=== PATIENT | female | born 1975 | race Caucasian/White ===

== ENCOUNTER 2020-12-22 06:09 | Outpatient (REF) | payer OTHER, SELFPAY ==
[2020-12-22 12:02] LABS: Alanine Aminotransferase 31 U/L (0-31); Albumin Level 4.1 g/dL (3.5-5.0); Alkaline Phosphatase 74 U/L (39-117); Anion Gap 16 (12-20); Aspartate Amino Transferase 21 U/L (5-31); Blood Urea Nitrogen 10 mg/dL (9-16); Calcium 9.1 mg/dL (8.4-10.2); Carbon Dioxide 25 mmol/L (22-29); Chloride 102 mmol/L (96-108); Cholesterol 207 mg/dL; Estimated Glomerular Filt Rate > 60; Glucose Fasting 79 mg/dL (60-99); HDL Cholesterol 58 mg/dL; LDL Cholesterol Calculated 115 mg/dl; Potassium 3.9 mmol/L (3.3-5.1); Sodium 139 mmol/L (135-145); Total Protein 6.7 g/dL (6.5-8.0); Triglycerides 174 mg/dL
== END 2020-12-22 06:10 | disposition home or self-care (01) ==
LOC: HO.HMGCLDS 06:09
PROVIDERS: PCP Internal Medicine; Visit Provider Internal Medicine
DX: E78.5 Hyperlipidemia, unspecified (principal); J45.909 Unspecified asthma, uncomplicated
CPT/HCPCS: 36415; 80053; 80061

== ENCOUNTER 2021-08-29 08:42 | Outpatient (REF) | payer OTHER, SELFPAY ==
[2021-08-29 11:53] LABS: Hematocrit 40.6 % (37.0-47.0); Hemoglobin 13.1 g/dl (12.0-16.0); Mean Corpuscular HGB Conc 32.3 g/dl (31.0-35.0); Mean Corpuscular Hemoglobin 29.3 pg (27.0-33.0); Mean Corpuscular Volume 90.8 fL (80.0-98.0); Mean Platelet Volume 9.4 fL (9.4-12.3); Platelet Count 353 X10*3/uL (160-400); Red Blood Count 4.47 X10*6/uL (4.20-5.50); Red Cell Distribution Width 12.8 % (11.0-16.0); White Blood Count 5.6 X10*3/uL (4.8-10.8)
[2021-08-29 12:21] LABS: Alanine Aminotransferase 38 U/L (0-31); Albumin Level 3.9 g/dL (3.5-5.0); Alkaline Phosphatase 82 U/L (39-117); Anion Gap 12 (12-20); Aspartate Amino Transferase 20 U/L (5-31); Bilirubin Total 0.6 mg/dL (0.0-1.0); Blood Urea Nitrogen 10 mg/dL (9-16); Calcium 9.1 mg/dL (8.4-10.2); Carbon Dioxide 25 mmol/L (22-29); Chloride 107 mmol/L (96-108); Cholesterol 221 mg/dL; Estimated Glomerular Filt Rate > 60; Glucose Fasting 96 mg/dL (60-99); HDL Cholesterol 46 mg/dL; LDL Cholesterol Calculated 148 mg/dl; Potassium 4.7 mmol/L (3.3-5.1); Sodium 139 mmol/L (135-145); Total Protein 6.6 g/dL (6.5-8.0); Triglycerides 137 mg/dL
[2021-08-29 12:26] LABS: TSH reflex Free T4 3.14 uIU/mL (0.32-4.0)
== END 2021-08-29 08:43 | disposition home or self-care (01) ==
LOC: HO.HMGCLDS 08:42
PROVIDERS: PCP Internal Medicine; Visit Provider Internal Medicine
DX: Z00.00 Encounter for general adult medical examination without abnormal findings (principal); E78.5 Hyperlipidemia, unspecified
CPT/HCPCS: 36415; 80053; 80061; 84443; 85027

== ENCOUNTER → 2022-03-30 09:28 | Outpatient (REF) | payer OTHER, SELFPAY ==
--- NOTE | 2022-03-30 09:33 | CA_ITS ---
Transthoracic Echocardiogram Patient (Last, First, Middle): Ericka Kimble Z Gender: Female Date of : 1975 Age: 47 Procedure Date: 03/30/2022 Procedure Type: Transthoracic Echocardiogram Location: OP Height: 162.56 cm Weight: 79.83 kg BSA: 1.85 m2 Heart Rate: 77 bpm BP: 142 / 80 mmHg Research Associate: SB Referring MD: Kymberly Hemphill MD Symptoms: I10 - Essential (primary) hypertension Study Quality: Adequate ECG Rhythm: Sinus Conclusions: - The left ventricular systolic function is normal. The calculated ejection fraction is 64% by biplane method. - No obvious valvular pathology seen on this study. Findings Left Ventricle Normal left ventricular cavity size. There is normal left ventricular wall thickness. The left ventricular systolic function is normal. The calculated ejection fraction is 64% by biplane method. There is no evidence of regional wall motion abnormalities. Diastolic function is normal for age. LV peak GLS -22.2%. Right Ventricle Normal right ventricular cavity size and systolic function. Atria Both atria are normal in size. Aortic Valve There is a normal trileaflet aortic valve. There is no aortic valve stenosis. There is no aortic valve regurgitation. Mitral Valve The mitral valve appears normal. There is no mitral valve regurgitation. There is no mitral valve stenosis. Pulmonic Valve The pulmonic valve is likely normal. Tricuspid Valve Normal tricuspid valve structure. There is trace tricuspid valve regurgitation. There is no evidence of pulmonary hypertension. Great Vessels The asc aorta is normal in size. Venous The inferior vena cava is normal in size and collapses greater than 50% with inspiration. Pericardium/Pleural There is no evidence of pericardial effusion. Prior Study Comparison No prior study available for comparison. Recommendations, Care & Conclusions No obvious valvular pathology seen on this study. Measurements 2D Linear Measurements IVSd: 0.78 0.6-0.9/0.6-1.0 cm LVIDd: 4.47 3.9-5.3/4.2-5.9 cm LVIDd Index: 2.42 2.4-3.2/2.2-3.1 cm/m2 LVIDs: 2.42 2.0-3.6 cm LVPWd: 0.90 0.7-1.1 cm LA Diam: 3.70 2.7-3.8/3.0-4.0 cm LAIDs Index: 2.00 1.5-2.3 cm/m2 LV Mass: 148.91 67-162/88-224 g LV Mass Index: 80.49 43-95/49-115 g/m2 LVOT Diam: 2.00 3.0+(-)1.3 cm 2D Systolic Function EF 4C: 56.10 >55% EF 2C: 71.30 >55% EF BiP: 64.10 >55% Mitral Valve MV Pk E: 0.97 MV PK A: 0.99 MV Decel Time: 217.00 E/A: 1.00 E'Lateral: 11.50 E'Medial: 9.68 E/E' Med: 10.00 E/E' Lat: 8.40 PHT: 64.00 MVA PHT: 3.44 Decel Ware: 4.46 Aortic Valve AoV Pk Andre: 1.92 AoV Mn Andre: 1.30 AoV VTI: 0.38 AoV Pk Grad: 15.00 Aov Mn Grad: 8.00 OTILIA Cont.VTI: 2.43 LVOT LVOT Pk Andre: 1.35 LVOT Mn Andre: 1.00 LVOT VTI: 0.29 LVOT Pk Grad: 7.00 LVOT Mn Grad: 4.00 LVOT Diam: 2.00 LVOT Area: 3.14 Diastolic Function MV Pk E: 0.97 MV Pk A: 0.99 E/A: 1.00 E'Medial: 9.68 E/E' Med: 10.00 E' Laterial: 11.50 E/E' Lat: 8.40 Right Ventricle TAPSE (mm): 22.10 TVS' Andre: 13.40 Tricuspid Valve RA Press: 3.00 Great Vessels Aorta Sinus of Valsalva: 2.80 2.0-3.5 cm Ao Asc: 2.90 2.1-3.4 cm Pulmonary Veins Pulm Vein S/D 1.20 Pulmonary Valve PV Pk Andre: 1.05 Peak PV Grad: 4.00 Updated in Other Vendor System with Status of Final Daron Thompson MD electronically signed on 03/31/2022 1:34:03 PM with status of Final
== END ==
LOC: HO.CARD 09:28
PROVIDERS: PCP Internal Medicine; Visit Provider Internal Medicine
DX: I10 Essential (primary) hypertension (principal); R06.09 Other forms of dyspnea
CPT/HCPCS: 93306; 93356

== ENCOUNTER 2022-04-05 08:11 | Outpatient (REF) | payer OTHER, SELFPAY ==
[2022-04-05 11:27] LABS: MANUAL DIFF FLAG NO
[2022-04-05 11:39] LABS: Basophils Percent Auto 0.6 % (0-2); Eosinophils Absolute Auto 0.1 X10*3/uL (0.0-0.4); Hematocrit 41.3 % (37.0-47.0); Hemoglobin 13.5 g/dl (12.0-16.0); Imm Gran Abs Auto 0.03 X10*3/uL (0.00-0.03); Imm Gran Pct Auto 0.6 % (0.0-0.4); Lymphocytes Absolute Auto 1.7 X10*3/uL (1.2-4.9); Lymphocytes Percent Auto 34.3 % (20-40); Mean Corpuscular HGB Conc 32.7 g/dl (31.0-35.0); Mean Corpuscular Hemoglobin 28.7 pg (27.0-33.0); Mean Corpuscular Volume 87.9 fL (80.0-98.0); Mean Platelet Volume 9.2 fL (9.4-12.3); Monocytes Absolute Auto 0.9 X10*3/uL (0.1-1.2); Monocytes Percent Auto 17.5 % (2-11); Neutrophils Absolute Auto 2.3 x10*3/uL (2.0-8.3); Platelet Count 356 X10*3/uL (160-400); Red Cell Distribution Width 12.7 % (11.0-16.0); White Blood Count 5.1 X10*3/uL (4.8-10.8)
[2022-04-05 12:05] LABS: Alanine Aminotransferase 43 U/L (0-31); Albumin Level 4.2 g/dL (3.5-5.0); Alkaline Phosphatase 79 U/L (39-117); Anion Gap 15 (12-20); Aspartate Amino Transferase 25 U/L (5-31); Bilirubin Total 1.2 mg/dL (0.0-1.0); Blood Urea Nitrogen 9 mg/dL (9-16); Calcium 9.3 mg/dL (8.4-10.2); Carbon Dioxide 26 mmol/L (22-29); Chloride 103 mmol/L (96-108); Cholesterol 249 mg/dL; Estimated Glomerular Filt Rate > 60; Glucose Fasting 91 mg/dL (60-99); HDL Cholesterol 53 mg/dL; LDL Cholesterol Calculated 161 mg/dl; Potassium 4.7 mmol/L (3.3-5.1); Sodium 139 mmol/L (135-145); Total Protein 6.9 g/dL (6.5-8.0); Triglycerides 176 mg/dL
[2022-04-05 12:09] LABS: TSH reflex Free T4 3.07 uIU/mL (0.32-4.0)
== END 2022-04-05 08:12 | disposition home or self-care (01) ==
LOC: HO.HMGCLDS 08:11
PROVIDERS: PCP Internal Medicine; Visit Provider Internal Medicine
DX: I10 Essential (primary) hypertension (principal); E78.5 Hyperlipidemia, unspecified
CPT/HCPCS: 36415; 80053; 80061; 84443; 85025

== ENCOUNTER 2022-09-28 07:21 | Outpatient (REF) | payer OTHER, SELFPAY ==
[2022-09-28 12:13] LABS: Alanine Aminotransferase 35 U/L (0-31); Albumin Level 4.1 g/dL (3.5-5.0); Alkaline Phosphatase 83 U/L (39-117); Anion Gap 12 (12-20); Aspartate Amino Transferase 23 U/L (5-31); Bilirubin Total 1.2 mg/dL (0.0-1.0); Blood Urea Nitrogen 11 mg/dL (9-16); Calcium 9.1 mg/dL (8.4-10.2); Carbon Dioxide 26 mmol/L (22-29); Chloride 106 mmol/L (96-108); Cholesterol 234 mg/dL; Estimated Glomerular Filt Rate > 60; Glucose Fasting 98 mg/dL (60-99); HDL Cholesterol 51 mg/dL; LDL Cholesterol Calculated 162 mg/dl; Potassium 4.4 mmol/L (3.3-5.1); Sodium 140 mmol/L (135-145); Total Protein 6.5 g/dL (6.5-8.0); Triglycerides 107 mg/dL
[2022-09-29 08:38] LABS: HBsAGNum1 0.33 S/CO (0.00-0.99); Hepatitis A Antibody IgM 0.15 Index (0-0.79); Hepatitis B Core Antibody Nonreactive (Nonreactive); Hepatitis B Surface Antigen Negative (Negative); ~HepC Num1 0.23 S/CO (0.00-0.79); ~Hepatitis A Antibody IgM Nonreactive (Nonreactive); ~Hepatitis B Surface Antibody NONREACTIVE (Nonreactive); ~Hepatitis C Antibody Nonreactive (Nonreactive)
== END 2022-09-28 07:22 | disposition home or self-care (01) ==
LOC: HO.HMGCLDS 07:21
PROVIDERS: PCP Internal Medicine; Visit Provider Internal Medicine
DX: E78.5 Hyperlipidemia, unspecified (principal); J45.909 Unspecified asthma, uncomplicated; R79.89 Other specified abnormal findings of blood chemistry
CPT/HCPCS: 36415; 80053; 80061; 86704; 86706; 86709; 86803; 87340

== ENCOUNTER 2023-01-30 14:27 | Outpatient (AMB) | payer OTHER, SELFPAY ==
--- NOTE | 2023-01-30 14:27 | MHC.PC.OV ---
Vital Signs 01/30/23 14:29 Height 5 ft 1 in Weight 175 lb BMI 33.1 BP 122/78 Blood Pressure Location Rt brachial Position Sitting Pulse 100 Pulse Source Pulse Oximeter Pulse Oximetry (%) 97 Oxygen Delivery Method Room Air Intake Visit Reasons: L shoulder pain Intake Note: Pt is here today for a sick visit. Pt c/o L shoulder pain that goes down her arm. Allergies codeine Allergy (Intermediate, Verified 01/30/23 14:33) itching and rash Medication List - Last Reconciled 01/30/23 by Kymberly Hemphill MD albuterol sulfate 90 mcg/actuation (ProAir HFA) 2 puffs inhalation Q6H PRN azelastine 1 spray intranasal BID budesonide-formoterol 160-4.5 mcg/actuation (Symbicort) 2 puffs inhalation BID fluticasone propionate 50 mcg/actuation 1 spray intranasal DAILY mometasone 0.1% 1 appl topical DAILY montelukast 10 mg PO DAILY olmesartan 20 mg PO DAILY triamcinolone acetonide 0.1% 1 appl topical DAILY Tobacco use date assessed: 07/21/22 Dental Screening Dental Screen Date: 01/30/23 Did you have a dental visit in the last 12 months?: Yes Did you have a dental problem in the last 6 months where you did not have access to dental care?: No Was dental information given to patient?: Patient has dentist HPI L shoulder pain HPI Details Pt c/o L shoulder pain getting progressively worse for 3 days started after lifting a heavy bucket. Patient tried ibuprofen without relief. She cannot lift her left arm because of the pain. Hypertension and chronic asthma are stable on current medications [facility] Medical History Allergic rhinitis Annual physical exam Asthma Eczema Hyperlipemia Nephrolithiasis Normal Pap smear Rectal bleed Surgical History History of lithotripsy Family History Father No problems noted. Mother HTN (hypertension) Social History Housing: House Patient Tobacco Use Status: Never used Tobacco e-Cigarette/Vaping Use: Never Used Second Hand Smoke Exposure: No service: No Current occupational status: employed Cognitive needs: No Hearing needs: No Vision needs: No Questionnaire Thrive Questionnaire Date Thrive assessed: 09/28/22 MESERET-7 AMB Questionnaire MESERET-7 Date MESERET - 7 assessed: 09/28/22 Source: Developed by Drs. Madhu Zhu, Mini Bee, Angel Zuluaga and colleagues, with an educational chela from [email or web address]. Review of Systems Const All systems reviewed & are unremarkable except as noted in HPI and below Reports no additional complaints Eyes Reports no additional complaints ENT Reports no additional complaints Card Reports no additional complaints Resp Reports no additional complaints GI Reports no additional complaints Physical exam (Primary Care) Vital Signs: Last Vital Signs Pulse 100 01/30/23 14:29 BP 122/78 01/30/23 14:29 Pulse Ox 97 01/30/23 14:29 Oxygen Delivery Method Room Air 01/30/23 14:29 BMI result Body Mass Index 33.1 Tobacco/Smoking Status: Tobacco use Status Tobacco use date assessed 07/21/22 01/30/23 14:29 Patient Tobacco Use Status Never used Tobacco 01/30/23 14:29 e-Cigarette/Vaping Use Never Used 01/30/23 14:29 Thrive Assessment: Date of Thrive Assessment Date Thrive assessed 09/28/22 01/30/23 14:29 Const General: no acute distress HENMT Throat: Yes posterior oropharynx normal Eyes General: appearance normal, both eyes and all related structures Neck Neck: Yes no lymphadenopathy and Yes supple Resp Effort & Inspection: normal respiratory effort Auscultation: clear to auscultation bilaterally Cardio Rhythm: regular rhythm Heart sounds: S1 normal heart sound present and S2 normal heart sound present Extrem Other: Anterior lateral aspect of left shoulder tenderness significantly decreased range of motion no soft tissue swelling Assessment and Plan Assessment & Plan (1) Left shoulder tendinitis: Code(s): M77.8 - Other enthesopathies, not elsewhere classified Plan: Prednisone taper is prescribed and supportive care discussed with the patient Medications: New prednisone Four tablets p.o. q.d. for 3 days then 3 tablets p.o. q.d. for 3 days then 2 tablets p.o. q.d. for 3 days and 1 tablet p.o. q.d. for 3 days 10 mg PO DAILY 30 tabs 0RF Coding Level of Care Code Est Pt Level 3 (60193) Diagnoses Left shoulder tendinitis M77.8
[2023-01-30 14:29] VITALS: BP 122/78; PULSE 100; O2SAT 97; BMI 33.1
== END 2023-01-30 14:57 | disposition home or self-care (01) ==
LOC: HO.HMGC 14:27
PROVIDERS: PCP Internal Medicine; Visit Provider Internal Medicine
DX: M77.8 Other enthesopathies, not elsewhere classified (principal)
CPT/HCPCS: 99213

== ENCOUNTER 2023-07-28 08:06 | Outpatient (REF) | payer OTHER, SELFPAY ==
[2023-07-28 11:00] LABS: MANUAL DIFF FLAG NO
[2023-07-28 11:02] LABS: Basophils Percent Auto 0.6 % (0-2); Eosinophils Absolute Auto 0.1 X10*3/uL (0.0-0.4); Eosinophils Percent Auto 2.6 % (0-4); Hematocrit 39.3 % (37.0-47.0); Hemoglobin 13.3 g/dl (12.0-16.0); Imm Gran Abs Auto 0.03 X10*3/uL (0.00-0.03); Imm Gran Pct Auto 0.6 % (0.0-0.4); Lymphocytes Absolute Auto 1.9 X10*3/uL (1.2-4.9); Lymphocytes Percent Auto 37.6 % (20-40); Mean Corpuscular HGB Conc 33.8 g/dl (31.0-35.0); Mean Corpuscular Hemoglobin 29.6 pg (27.0-33.0); Mean Corpuscular Volume 87.5 fL (80.0-98.0); Mean Platelet Volume 9.2 fL (9.4-12.3); Monocytes Absolute Auto 0.8 X10*3/uL (0.1-1.2); Monocytes Percent Auto 15.7 % (2-11); Neutrophils Absolute Auto 2.2 x10*3/uL (2.0-8.3); Neutrophils Percent Auto 42.9 % (45-73); Platelet Count 337 X10*3/uL (160-400); Red Blood Count 4.49 X10*6/uL (4.20-5.50); Red Cell Distribution Width 12.8 % (11.0-16.0)
[2023-07-28 11:25] LABS: Alanine Aminotransferase 43 U/L (0-31); Albumin Level 3.9 g/dL (3.5-5.0); Alkaline Phosphatase 73 U/L (39-117); Anion Gap 14 (12-20); Aspartate Amino Transferase 27 U/L (5-31); Bilirubin Total 0.8 mg/dL (0.0-1.0); Blood Urea Nitrogen 11 mg/dL (9-16); Calcium 9.1 mg/dL (8.4-10.2); Carbon Dioxide 24 mmol/L (22-29); Chloride 104 mmol/L (96-108); Cholesterol 219 mg/dL (<200); Estimated Glomerular Filt Rate > 60; Glucose Fasting 88 mg/dL (60-99); HDL Cholesterol 55 mg/dL (>40); LDL Cholesterol Calculated 136 mg/dL (<100); Potassium 4.1 mmol/L (3.3-5.1); Sodium 138 mmol/L (135-145); Total Protein 6.6 g/dL (6.5-8.0); Triglycerides 141 mg/dL (<150)
[2023-07-28 11:41] LABS: TSH reflex Free T4 2.19 uIU/mL (0.32-4.0)
== END 2023-07-28 08:07 | disposition home or self-care (01) ==
LOC: HO.HMGCLDS 08:06
PROVIDERS: PCP Internal Medicine; Visit Provider Internal Medicine
DX: Z00.00 Encounter for general adult medical examination without abnormal findings (principal); E78.5 Hyperlipidemia, unspecified; I10 Essential (primary) hypertension
CPT/HCPCS: 36415; 80053; 80061; 84443; 85025

== ENCOUNTER 2023-08-14 13:56 | Outpatient (AMB) | payer OTHER, SELFPAY ==
--- NOTE | 2023-08-14 14:04 | A.OFFPC_ITS ---
Vital Signs 08/14/23 14:05 Height 5 ft 1 in Weight 178 lb BMI 33.6 BP 134/80 Blood Pressure Location Lt brachial Position Sitting Pulse 73 Pulse Source Pulse Oximeter Pulse Oximetry (%) 98 Oxygen Delivery Method Room Air Intake Visit Reasons: PE Intake Note: Pt is here today for a PE. Pt states that she has been having L foot pain. Allergies codeine Allergy (Intermediate, Verified 08/14/23 14:06) itching and rash Medication List - Last Reconciled 08/14/23 by Kymberly Hemphill MD albuterol sulfate 90 mcg/actuation (ProAir HFA) 2 puffs inhalation Q6H PRN azelastine 1 spray intranasal BID budesonide-formoterol 160-4.5 mcg/actuation (Symbicort) 2 puffs inhalation BID fluconazole 100 mg PO DAILY fluticasone furoate-vilanterol 100-25 mcg/dose (Breo Ellipta) 1 inh inhalation DAILY fluticasone propionate 50 mcg/actuation 1 spray intranasal DAILY meloxicam 15 mg PO DAILY mometasone 0.1% 1 appl topical DAILY montelukast 10 mg PO DAILY olmesartan 20 mg PO DAILY triamcinolone acetonide 0.1% 1 appl topical DAILY Tobacco use date assessed: 08/14/23 Dental Screening Dental Screen Date: 08/14/23 Did you have a dental visit in the last 12 months?: Yes Did you have a dental problem in the last 6 months where you did not have access to dental care?: No Was dental information given to patient?: Patient has dentist HPI PE HPI Details Pt presents for PE. PATIENT COMPLAINS OF LEFT HEEL PAIN FOR 1 WEEK WORSE WHEN STARTING TO WALK [facility] Medical History (Updated 08/14/23 @ 14:45 by Kymberly Hemphill MD) Annual physical exam Rectal bleed Normal Pap smear Hyperlipemia Allergic rhinitis Asthma Nephrolithiasis Eczema Surgical History History of lithotripsy Family History Father No problems noted. Mother HTN (hypertension) Social History Housing: House Patient Tobacco Use Status: Never used Tobacco e-Cigarette/Vaping Use: Never Used Second Hand Smoke Exposure: No service: No Current occupational status: employed Cognitive needs: No Hearing needs: No Vision needs: No Questionnaire PHQ-9 Over the last 2 weeks, how often have you been bothered by any of the following problems? 1. Little interest or pleasure in doing things: not at all 2. Feeling down, depressed, or hopeless: not at all 3. Trouble falling or staying asleep, or sleeping too much: not at all 4. Feeling tired or having little energy: several days 5. Poor appetite or overeating: not at all 6. Feeling bad about yourself - or that you are a failure or have let yourself or your family down: not at all 7. Trouble concentrating on things, such as reading the newspaper or watching television: not at all 8. Moving or speaking so slowly that other people could have noticed. Or the opposite - being so fidgety or restless that you have been moving around a lot more than usual: not at all 9. Thoughts that you would be better off or of hurting yourself in some way: not at all Total score: 1 Depression Screening Interpretation: Negative Depression Screening Done: Yes Source: Developed by Drs. Madhu Zhu, Mini Bee, Angel Zuluaga and colleagues, with an educational chela from [email or web address]. Thrive Questionnaire Date Thrive assessed: 08/14/23 I am a: Patient What is your living situation today?: I have a steady place to live Within the past 12 months, did the food you bought not last and you didn't have the money to get more?: Never true Within the past 12 months, did you worry whether your food would run out before you got money to buy more?: Never true Do you have trouble paying for medicines?: No Do you have trouble getting transportation to medical appointments?: No Do you have trouble paying your heating and electricity bill?: No Do you have trouble taking care of your child, family member or friend?: No Do you have trouble with day-to-day activities such as bathing, preparing meals, shopping, managing finances, etc.?: No Are you currently unemployed and looking for a job?: No Are you interested in more education?: No Please select the resources that you would like help with: None Currently or been in a relationship where the following occur: no concerns reported THRIVE Score: 0 AUDIT C Alcohol Use Questionnaire (AUDIT-C) 1. How often do you have a drink containing alcohol?: Never 3. How often do you have six or more drinks on one occasion?: Never Total Score: 0 MESERET-7 AMB Questionnaire MESERET-7 Date MESERET - 7 assessed: 08/14/23 Feeling nervous, anxious, or on edge: 0 = Not at all Not being able to stop or control worryin = Not at all Worrying too much about different things: 0 = Not at all Trouble relaxin = Not at all Being so restless that it is hard to sit still: 0 = Not at all Becoming easily annoyed or irritable: 0 = Not at all Feeling afraid as if something awful might happen: 0 = Not at all Total MESERET-7 score (0-4 normal; 5-9 mild; 10-14 moderate; 15-21 severe): 0 Source: Developed by Drs. Madhu Zhu, Mini Bee, Angel Zuluaga and colleagues, with an educational chela from [email or web address]. Review of Systems Const All systems reviewed & are unremarkable except as noted in HPI and below Reports no additional complaints Eyes Reports no additional complaints ENT Reports no additional complaints Card Reports no additional complaints Resp Reports no additional complaints GI Reports no additional complaints Reports no additional complaints Musc Reports no additional complaints Physical exam (Primary Care) Vital Signs: Last Vital Signs Pulse 73 08/14/23 14:05 BP 134/80 08/14/23 14:05 Pulse Ox 98 08/14/23 14:05 Oxygen Delivery Method Room Air 08/14/23 14:05 BMI result Body Mass Index 33.6 Tobacco/Smoking Status: Tobacco use Status Tobacco use date assessed 08/14/23 08/14/23 14:12 Patient Tobacco Use Status Never used Tobacco 08/14/23 14:12 e-Cigarette/Vaping Use Never Used 08/14/23 14:12 PHQ-9: PHQ-9 Score PHQ-9: Total score 1 08/14/23 14:12 Depression Screening Interpretation: Negative Thrive Assessment: Date of Thrive Assessment Date Thrive assessed 08/14/23 08/14/23 14:12 Currently or been in a relationship where the following occur: no concerns reported Const General: no acute distress HENMT Head: Yes normal to inspection Ears: hearing grossly normal bilaterally Face and sinus: Yes normal facial exam Neck Neck: Yes no lymphadenopathy and Yes supple Resp Effort & Inspection: normal respiratory effort Auscultation: clear to auscultation bilaterally Cardio Rhythm: regular rhythm Heart sounds: S1 normal heart sound present and S2 normal heart sound present GI Inspection: Yes normal to inspection Palpation (GI): Soft to palpation Percussion: Yes normal to percussion Auscultation: normal bowel sounds Extrem Other: Tenderness over left heel plantar no soft tissue swelling General: Yes no clubbing, cyanosis or edema Assessment and Plan Assessment & Plan (1) Hx of colonoscopy: Comment: 04/08 1 polyp, Dr. Franklin, recheck in 5 years Code(s): Z98.890 - Other specified postprocedural states (2) Annual physical exam: Code(s): Z00.00 - Encounter for general adult medical examination without abnormal findings Plan: Well-balanced diet regular exercise weight loss discussed with the patient. She is up-to-date with Pap smear by repair specialist mammogram and colonoscopy (3) HTN (hypertension): Code(s): I10 - Essential (primary) hypertension Plan: Continue olmesartan (4) Asthma: Code(s): J45.909 - Unspecified asthma, uncomplicated (5) Plantar fasciitis of left foot: Code(s): M72.2 - Plantar fascial fibromatosis Plan: Meloxicam and stretching Orders: Orders Comprehensive [place]. Panel Fast 6 Months E78.5 - Hyperlipidemia, unspecified, I10 - Essential (primary) hypertension Complete Blood Count Auto Diff 6 Months E78.5 - Hyperlipidemia, unspecified, I10 - Essential (primary) hypertension Lipid Panel 6 Months E78.5 - Hyperlipidemia, unspecified, I10 - Essential (primary) hypertension TSH reflex Free T4 6 Months E78.5 - Hyperlipidemia, unspecified, I10 - Essential (primary) hypertension Medications: New meloxicam 15 mg PO DAILY 10 tabs 0RF fluconazole 100 mg PO DAILY 7 tabs 0RF Discontinued budesonide-formoterol 160-4.5 mcg/actuation (Symbicort) Discontinued Reason: Doctor's Order 2 puffs inhalation BID 30.6 grams 3RF J45.909 - Unspecified asthma, uncomplicated Coding Level of Care Code Est Pt Prev Care 40-64y(13863) Diagnoses Hx of colonoscopy Z98.890 Annual physical exam Z00.00 HTN (hypertension) I10 Asthma J45.909 Plantar fasciitis of left foot M72.2
[2023-08-14 14:05] VITALS: BP 134/80; PULSE 73; O2SAT 98; BMI 33.6
== END 2023-08-14 14:35 | disposition home or self-care (01) ==
PROVIDERS: PCP Internal Medicine; Visit Provider Internal Medicine
DX: Z98.890 Other specified postprocedural states (principal); Z00.00 Encounter for general adult medical examination without abnormal findings; I10 Essential (primary) hypertension; J45.909 Unspecified asthma, uncomplicated; M72.2 Plantar fascial fibromatosis
CPT/HCPCS: 99396

== ENCOUNTER 2024-01-25 14:02 | Outpatient (AMB) | payer OTHER, SELFPAY ==
[2024-01-25 14:04] VITALS: BP 120/82; PULSE 74; O2SAT 96; BMI 32.7
--- NOTE | 2024-01-25 14:04 | A.OFFPC_ITS ---
Vital Signs 01/25/24 14:04 Height 5 ft 1 in Weight 173 lb BMI 32.7 BP 120/82 Blood Pressure Location Lt brachial Position Sitting Pulse 74 Pulse Source Pulse Oximeter Pulse Oximetry (%) 96 Oxygen Delivery Method Room Air Intake Visit Reasons: 6M F/U Intake Note: Pt is here today for 6 months follow up visit. Allergies codeine Allergy (Intermediate, Verified 01/25/24 14:10) itching and rash Medication List - Last Reconciled 01/25/24 by Kymberly Hemphill MD albuterol sulfate 90 mcg/actuation (ProAir HFA) 2 puffs inhalation Q6H PRN azelastine 1 spray intranasal BID fluconazole 100 mg PO DAILY fluticasone furoate-vilanterol 100-25 mcg/dose (Breo Ellipta) 1 inh inhalation DAILY fluticasone propionate 50 mcg/actuation 1 spray intranasal DAILY meloxicam 15 mg PO DAILY mometasone 0.1% 1 appl topical DAILY montelukast 10 mg PO DAILY olmesartan 20 mg PO DAILY triamcinolone acetonide 0.1% 1 appl topical DAILY Tobacco use date assessed: 01/25/24 Dental Screening Dental Screen Date: 01/25/24 Did you have a dental visit in the last 12 months?: Yes Did you have a dental problem in the last 6 months where you did not have access to dental care?: No Was dental information given to patient?: Patient has dentist HPI 6M F/U HPI Details Pt presents for the follow-up of hypertension chronic asthma stable on current medications. Patient complains of persistent bilateral lower extremities sensation of heaviness and discomfort worse at the end of the day. She complains of persistent left heel pain worse when starting to walk. She took meloxicam for 10 days with some relief. Patient has been doing plantar fasciitis stretching exercises and wearing some foot inserts regularly. [facility] Medical History Annual physical exam Rectal bleed Normal Pap smear Hyperlipemia Allergic rhinitis Asthma Nephrolithiasis Eczema Surgical History History of lithotripsy Family History Father No problems noted. Mother HTN (hypertension) Social History Housing: House Patient Tobacco Use Status: Never used Tobacco e-Cigarette/Vaping Use: Never Used Second Hand Smoke Exposure: No service: No Current occupational status: employed Cognitive needs: No Hearing needs: No Vision needs: No Questionnaire PHQ-9 Over the last 2 weeks, how often have you been bothered by any of the following problems? 1. Little interest or pleasure in doing things: not at all 2. Feeling down, depressed, or hopeless: not at all 3. Trouble falling or staying asleep, or sleeping too much: not at all 4. Feeling tired or having little energy: several days 5. Poor appetite or overeating: not at all 6. Feeling bad about yourself - or that you are a failure or have let yourself or your family down: not at all 7. Trouble concentrating on things, such as reading the newspaper or watching television: not at all 8. Moving or speaking so slowly that other people could have noticed. Or the opposite - being so fidgety or restless that you have been moving around a lot more than usual: not at all 9. Thoughts that you would be better off or of hurting yourself in some way: not at all Total score: 1 Depression Screening Interpretation: Negative Depression Screening Done: Yes 85633 - PHQ-9 Billing: Yes Source: Developed by Drs. Madhu Zhu, Mini Bee, Angel Zuluaga and colleagues, with an educational chela from [employer]. Thrive Questionnaire Date Thrive assessed: 01/25/24 I am a: Patient What is your living situation today?: I have a steady place to live Within the past 12 months, did the food you bought not last and you didn't have the money to get more?: Often true Within the past 12 months, did you worry whether your food would run out before you got money to buy more?: I choose not to answer this question Do you have trouble paying for medicines?: I choose not to answer this question Do you have trouble getting transportation to medical appointments?: No Do you have trouble paying your heating and electricity bill?: I choose not to answer this question Do you have trouble taking care of your child, family member or friend?: No Do you have trouble with day-to-day activities such as bathing, preparing meals, shopping, managing finances, etc.?: No Are you currently unemployed and looking for a job?: No Are you interested in more education?: I choose not to answer this question Please select the resources that you would like help with: Housing/Penitentiary THRIVE Score: 1 AUDIT C Alcohol Use Questionnaire (AUDIT-C) 1. How often do you have a drink containing alcohol?: Never 3. How often do you have six or more drinks on one occasion?: Never Total Score: 0 MESERET-7 AMB Questionnaire MESERET-7 Date MESERET - 7 assessed: 01/25/24 Feeling nervous, anxious, or on edge: 0 = Not at all Not being able to stop or control worryin = Not at all Worrying too much about different things: 0 = Not at all Trouble relaxin = Not at all Being so restless that it is hard to sit still: 0 = Not at all Becoming easily annoyed or irritable: 0 = Not at all Feeling afraid as if something awful might happen: 0 = Not at all Total MESERET-7 score (0-4 normal; 5-9 mild; 10-14 moderate; 15-21 severe): 0 Source: Developed by Drs. Madhu Zhu, Mini Bee, Angel Zuluaga and colleagues, with an educational chela from [employer]. Review of Systems Const All systems reviewed & are unremarkable except as noted in HPI and below Eyes Reports no additional complaints Card Reports no additional complaints Resp Reports no additional complaints GI Reports no additional complaints Reports no additional complaints Physical exam (Primary Care) Vital Signs: Last Vital Signs Pulse 74 01/25/24 14:04 BP 120/82 01/25/24 14:04 Pulse Ox 96 01/25/24 14:04 Oxygen Delivery Method Room Air 01/25/24 14:04 BMI result Body Mass Index 32.7 Tobacco/Smoking Status: Tobacco use Status Tobacco use date assessed 01/25/24 01/25/24 14:12 Patient Tobacco Use Status Never used Tobacco 01/25/24 14:12 e-Cigarette/Vaping Use Never Used 01/25/24 14:05 PHQ-9: PHQ-9 Score PHQ-9: Total score 1 01/25/24 14:12 Depression Screening Interpretation: Negative Thrive Assessment: Date of Thrive Assessment Date Thrive assessed 01/25/24 01/25/24 14:05 Const General: no acute distress HENMT Head: Yes normal to inspection Resp Effort & Inspection: normal respiratory effort Auscultation: clear to auscultation bilaterally Cardio Rhythm: regular rhythm Heart sounds: S1 normal heart sound present and S2 normal heart sound present GI Inspection: Yes normal to inspection Palpation (GI): Soft to palpation Percussion: Yes normal to percussion Extrem Other: 1+ pitting edema in lower extremities, reproducible tenderness in the left heel, Assessment and Plan Assessment & Plan (1) Plantar fasciitis of left foot: Code(s): M72.2 - Plantar fascial fibromatosis Plan: Continue supportive care with stretching exercises. Patient has an appointment with heavy duty truck mechanic in 2 months (2) HTN (hypertension): Code(s): I10 - Essential (primary) hypertension Plan: Continue current medications (3) Asthma: Code(s): J45.909 - Unspecified asthma, uncomplicated Plan: Continue Breo (4) Venous insufficiency of both lower extremities: Code(s): I87.2 - Venous insufficiency (chronic) (peripheral) Plan: Patient was advised to wear support knee-highs and elevate lower extremities Medications: Refilled meloxicam 15 mg PO DAILY 10 tabs 0RF meloxicam 15 mg PO DAILY 30 tabs 0RF Coding Level of Care Code Est Pt Level 4 (55868) Diagnoses Plantar fasciitis of left foot M72.2 HTN (hypertension) I10 Asthma J45.909 Venous insufficiency of both lower extremities I87.2
== END 2024-01-25 15:24 | disposition home or self-care (01) ==
PROVIDERS: PCP Internal Medicine; Visit Provider Internal Medicine
DX: M72.2 Plantar fascial fibromatosis (principal); I10 Essential (primary) hypertension; J45.909 Unspecified asthma, uncomplicated; I87.2 Venous insufficiency (chronic) (peripheral)
CPT/HCPCS: 99214

== ENCOUNTER 2024-09-01 12:55 | Outpatient (REF) | payer OTHER, SELFPAY ==
--- NOTE | ~2024-09-01 | XR_ITS ---
EXAMINATION: XR SHOULDER 2 OR MORE VIEWS RIGHT HISTORY: M25.519 - Pain in unspecified shoulder COMPARISON: There are no prior studies available for comparison. FINDINGS: Four views of the right shoulder are submitted. Osseous mineralization is normal. There is no fracture or dislocation. The glenohumeral joint is maintained. There is mild narrowing of the AC joint. Tiny calcifications adjacent to the greater tuberosity of the humerus is likely related to the rotator cuff. XR/XR shoulder RT min 2V IMPRESSION: Mild narrowing of the AC joint. Probable rotator cuff calcifications. Electronically signed by: Madhu Thapa MD 09/02/2024 07:57 AM EDT
== END 2024-09-01 12:56 | disposition home or self-care (01) ==
LOC: HO.HMGCX 12:55
PROVIDERS: PCP Internal Medicine; Visit Provider Internal Medicine
DX: Z00.00 Encounter for general adult medical examination without abnormal findings (principal); J45.909 Unspecified asthma, uncomplicated; M25.511 Pain in right shoulder; I10 Essential (primary) hypertension; E78.5 Hyperlipidemia, unspecified; Z98.890 Other specified postprocedural states
CPT/HCPCS: 73030; 96127

== ENCOUNTER 2024-09-01 12:55 | Outpatient (AMB) | payer OTHER, SELFPAY ==
[2024-09-01 13:10] VITALS: BP 124/78; PULSE 71; RESP 18; TEMP 36.6; O2SAT 97; BMI 33.6
--- NOTE | 2024-09-01 13:10 | MHC.PC.OV ---
Vital Signs 09/01/24 13:10 Height 5 ft 1 in Weight 178 lb BMI 33.6 BP 124/78 Blood Pressure Location Rt brachial Position Sitting Respiration 18 Pulse 71 Pulse Source Pulse Oximeter Temp 97.8 F Temp Source Oral Pulse Oximetry (%) 97 Oxygen Delivery Method Room Air Intake Visit Reasons: Annual PE Intake Note: Pt is here today for PE. Allergies codeine Allergy (Intermediate, Verified 09/01/24 13:15) itching and rash Medication List - Last Reconciled 09/01/24 by Kymberly Hemphill MD albuterol sulfate 90 mcg/actuation (ProAir HFA) 2 puffs inhalation Q6H PRN azelastine 1 spray intranasal BID fluconazole 100 mg PO DAILY fluticasone furoate-vilanterol 100-25 mcg/dose (Breo Ellipta) 1 inh inhalation DAILY fluticasone propionate 50 mcg/actuation 1 spray intranasal DAILY mometasone 0.1% 1 appl topical DAILY montelukast 10 mg PO DAILY olmesartan 20 mg PO DAILY triamcinolone acetonide 0.1% 1 appl topical DAILY Tobacco use date assessed: 09/01/24 Dental Screening Dental Screen Date: 09/01/24 Did you have a dental visit in the last 12 months?: Yes Did you have a dental problem in the last 6 months where you did not have access to dental care?: No Was dental information given to patient?: Patient has dentist HPI Annual PE HPI Details Patient presents for the physical. She complains of persistent right shoulder pain on and off for 6 months worse when trying to reach overhead. Patient denies injury or pain at rest. [facility] Medical History (Updated 09/01/24 @ 14:12 by Kymberly Hemphill MD) Annual physical exam Rectal bleed Normal Pap smear Hyperlipemia Allergic rhinitis Asthma Nephrolithiasis Eczema Surgical History (Updated 09/01/24 @ 14:05 by Kymberly Hemphill MD) Hx of colonoscopy History of lithotripsy Family History Father No problems noted. Mother HTN (hypertension) Social History Housing: House Patient Tobacco Use Status: Never used Tobacco e-Cigarette/Vaping Use: Never Used Second Hand Smoke Exposure: No service: No Current occupational status: employed Cognitive needs: No Hearing needs: No Vision needs: No Questionnaire PHQ-9 Over the last 2 weeks, how often have you been bothered by any of the following problems? 1. Little interest or pleasure in doing things: not at all 2. Feeling down, depressed, or hopeless: not at all 3. Trouble falling or staying asleep, or sleeping too much: not at all 4. Feeling tired or having little energy: several days 5. Poor appetite or overeating: not at all 6. Feeling bad about yourself - or that you are a failure or have let yourself or your family down: not at all 7. Trouble concentrating on things, such as reading the newspaper or watching television: not at all 8. Moving or speaking so slowly that other people could have noticed. Or the opposite - being so fidgety or restless that you have been moving around a lot more than usual: not at all 9. Thoughts that you would be better off or of hurting yourself in some way: not at all Total score: 1 Depression Screening Interpretation: Negative Depression Screening Done: Yes 71397 - PHQ-9 Billing: Yes Source: Developed by Drs. Madhu Zhu, Mini Bee, Angel Zuluaga and colleagues, with an educational chela from [employer]. Thrive Questionnaire Date Thrive assessed: 09/01/24 I am a: Patient What is your living situation today?: I have a steady place to live Within the past 12 months, did the food you bought not last and you didn't have the money to get more?: Never true Within the past 12 months, did you worry whether your food would run out before you got money to buy more?: Never true Do you have trouble paying for medicines?: No Do you have trouble getting transportation to medical appointments?: No Do you have trouble paying your heating and electricity bill?: No Do you have trouble taking care of your child, family member or friend?: No Do you have trouble with day-to-day activities such as bathing, preparing meals, shopping, managing finances, etc.?: No Are you currently unemployed and looking for a job?: No Are you interested in more education?: No Please select the resources that you would like help with: None THRIVE Score: 0 AUDIT C Alcohol Use Questionnaire (AUDIT-C) 1. How often do you have a drink containing alcohol?: Never 3. How often do you have six or more drinks on one occasion?: Never Total Score: 0 MESERET-7 AMB Questionnaire MESERET-7 Date MESERET - 7 assessed: 09/01/24 Feeling nervous, anxious, or on edge: 0 = Not at all Not being able to stop or control worryin = Not at all Worrying too much about different things: 0 = Not at all Trouble relaxin = Not at all Being so restless that it is hard to sit still: 0 = Not at all Becoming easily annoyed or irritable: 0 = Not at all Feeling afraid as if something awful might happen: 0 = Not at all Total MESERET-7 score (0-4 normal; 5-9 mild; 10-14 moderate; 15-21 severe): 0 Source: Developed by Drs. Madhu Zhu, Mini Bee, Angel Zuluaga and colleagues, with an educational chela from [employer]. MESERET-7 Assessment Billing MESERET-7 Assessment Tool: MESERET-7 Assessment 20149 Review of Systems Const All systems reviewed & are unremarkable except as noted in HPI and below Reports no additional complaints Eyes Reports no additional complaints ENT Reports no additional complaints Card Reports no additional complaints Resp Reports no additional complaints GI Reports no additional complaints Reports no additional complaints Physical exam (Primary Care) Vital Signs: Last Vital Signs Temp 97.8 F 09/01/24 13:10 Pulse 71 09/01/24 13:10 Resp 18 09/01/24 13:10 BP 124/78 09/01/24 13:10 Pulse Ox 97 09/01/24 13:10 Oxygen Delivery Method Room Air 09/01/24 13:10 BMI result Body Mass Index 33.6 Tobacco/Smoking Status: Tobacco use Status Tobacco use date assessed 09/01/24 09/01/24 13:17 Patient Tobacco Use Status Never used Tobacco 09/01/24 13:17 e-Cigarette/Vaping Use Never Used 09/01/24 13:11 PHQ-9: PHQ-9 Score PHQ-9: Total score 1 09/01/24 13:45 Depression Screening Interpretation: Negative Thrive Assessment: Date of Thrive Assessment Date Thrive assessed 09/01/24 09/01/24 13:11 Const General: no acute distress HENMT Head: Yes normal to inspection Ears: hearing grossly normal bilaterally Face and sinus: Yes normal facial exam Mouth: Normal oral and palatal mucosa present Eyes General: appearance normal, both eyes and all related structures Neck Neck: Yes no lymphadenopathy and Yes supple Resp Effort & Inspection: normal respiratory effort Auscultation: clear to auscultation bilaterally Cardio Rhythm: regular rhythm Heart sounds: S1 normal heart sound present and S2 normal heart sound present GI Inspection: Yes normal to inspection Palpation (GI): Soft to palpation Percussion: Yes normal to percussion Auscultation: normal bowel sounds Extrem Other: There is a decreased range of motion of the right shoulder when reaching overhead or with adduction Coding Level of Care Code Est Pt Prev Care 40-64y(03982) Diagnoses Hx of colonoscopy Z98.890 Asthma J45.909 Allergic rhinitis J30.9 Shoulder pain M25.519 HTN (hypertension) I10 Annual physical exam Z00.00 Hyperlipemia E78.5 Additional Codes MESERET-7 Assessment Billing - MESERET-7 Assessment Tool: MESERET-7 Assessment 74605 ([id number]) PHQ-9 - 34141 - PHQ-9 Billing: Yes ([id number]) Assessment & Plan Assessment & Plan (1) Hx of colonoscopy: Comment: 04/08 1 polyp, Dr. Franklin, recheck in 5 years Code(s): Z98.890 - Other specified postprocedural states Category: Surgical Plan: Up-to-date (2) Asthma: Code(s): J45.909 - Unspecified asthma, uncomplicated Category: Medical Plan: Continue Breo and montelukast follow-up with software quality automation engineer (3) Allergic rhinitis: Code(s): J30.9 - Allergic rhinitis, unspecified Category: Medical Plan: Follow-up with software quality automation engineer for immunotherapy (4) Shoulder pain: Comment: RIGHT Code(s): M25.519 - Pain in unspecified shoulder Category: Medical Plan: Obtain x-ray of right shoulder referred to physical therapy (5) HTN (hypertension): Code(s): I10 - Essential (primary) hypertension Category: Medical Plan: Increase olmesartan to 40 mg a day follow-up in 1 month. (6) Annual physical exam: Code(s): Z00.00 - Encounter for general adult medical examination without abnormal findings Category: Medical Plan: Well-balanced diet regular physical activity weight loss discussed with the patient she will schedule mammogram and Pap by qa engineer. (7) Hyperlipemia: Code(s): E78.5 - Hyperlipidemia, unspecified Category: Medical Plan: Continue low-cholesterol diet check lipid profile Orders: Orders PT Evaluation and Treatment Today M25.519 - Pain in unspecified shoulder Complete Blood Count Auto Diff 1 Week E78.5 - Hyperlipidemia, unspecified, I10 - Essential (primary) hypertension, Z00.00 - Encounter for general adult medical examination without abnormal findings UA w Microscopic 1 Week E78.5 - Hyperlipidemia, unspecified, I10 - Essential (primary) hypertension, Z00.00 - Encounter for general adult medical examination without abnormal findings XR shoulder RT min 2V Today M25.519 - Pain in unspecified shoulder Comprehensive [place]. Panel Fast 1 Week E78.5 - Hyperlipidemia, unspecified, I10 - Essential (primary) hypertension, Z00.00 - Encounter for general adult medical examination without abnormal findings Lipid Panel 1 Week E78.5 - Hyperlipidemia, unspecified, I10 - Essential (primary) hypertension, Z00.00 - Encounter for general adult medical examination without abnormal findings Vitamin D 25-OH Total 1 Week E78.5 - Hyperlipidemia, unspecified, I10 - Essential (primary) hypertension, Z00.00 - Encounter for general adult medical examination without abnormal findings TSH reflex Free T4 1 Week E78.5 - Hyperlipidemia, unspecified, I10 - Essential (primary) hypertension, Z00.00 - Encounter for general adult medical examination without abnormal findings Referrals Allergy & Immunology Referral J30.9 - Allergic rhinitis, unspecified, J45.909 - Unspecified asthma, uncomplicated Medications: New olmesartan 40 mg PO DAILY 90 tabs 3RF Discontinued olmesartan Discontinued Reason: Doctor's Order 20 mg PO DAILY 90 tabs 3RF
--- OUTSIDE RECORDS SUMMARY | 2024-09-01 15:01 | XMS_ITS | Patient Health Record ---
[facility] [place] Address [address] [place] [address] Care Team Providers Care Paint Laboratory Technician Name Role Phone Joby ESCOBEDO, Kymberly Primary Care Provider Aurora Us Unavailable [phone] Allergies Allergen (clinical drug ingredient) Drug/Non Drug Allergy documented on EMR Reaction Allergy Type Onset Date Status codeine Codeine Unknown Drug Allergy Active Reason For Referral No Information Medications Medication SIG (Take, Route, Frequency, Duration) Notes Start Date End Date Status Azelastine HCl Activ e Budesonide Active Fluconazole Active Fluticasone Furoate Active Fluticasone Propionate Active Meloxicam Active Mometasone Furoate A ctive Work Note . . . Pt off of work f rom 04/28/24-04/30/24; return to work on 05/01/24 04/28/2024 Active Montelukast Sodium A ctive Olmesartan Medoxomil Active Triamcinolone Acet-Ciclopirox Active Albuterol Sulfate Ac tive Social History Tobacco Use: Social History Observation Description Date Details (start date - stop date) Never Smoker NA - NA Tobacco Use/Smoking Question Answer Notes Are you a: nonsmoker Additional Findings: Tobacco Non-User Current no n-smoker Alcohol Screen Question Answer Notes Did you have a drink containing alcohol in the p ast year? No Points 0 Interpretation Negative Tobacco use other than smoking: Question Answer Notes Are you an other tobacco user? No Problems Problem Type SNOMED Code ICD Code Onset Dates Problem Status W/U Status Risk Notes Problem Plantar fasciitis (523169559) Plantar fasciitis (M72.2) Active confirmed Resistant to previous conservative treatment Problem Plantar fascial fibromatosis (68599149) Plantar fasciitis, bilateral (M72.2) Active confirmed Vital Signs Height 5ft 4in in 04/28/2024 Weight 169 lbs 04/28/2024 BMI 29.01 kg/m2 04/28/2024 Encounters Encounter Location Date Provider Diagnosis [address] [place] [address] 04/21/2024 Aurora Davidson Pain in right foot M79.671 ; Plantar fasciitis, bilateral M72.2 ; Calcaneal spur, right foot M77.31 ; Other myositis of right foot M60.871 ; Bursitis of right foot M77.51 ; Pain in left foot M79.672 ; Calcaneal spur, left foot M77.32 ; Other myositis of left foot M60.872 and Bursitis of left foot M77.[address] [place] [address] 04/28/2024 Aurora Davidson Plantar fasciitis M72.2 and Pain in left foot M79.[address] [address] 03/17/2024 Aurora Davidson [address] [address] 04/21/2024 Aurora Davidson [address] [address] 07/08/2024 Aurora Davidson [address] [address] 08/18/2024 Aurora Davidson Assessments Encounter Date Diagnosis (ICD Code) Assessment Notes Treatment Notes Treatment Clinical Notes Section Notes 04/21/2024 Pain in right foot (ICD-10 - M79.671) 04/28/2024 Plantar fasciitis (ICD-10 - M72.2) Resistant to previous conservative treatment Patient Educated with: RICE THERAPY.pdf (RICE THERAPY.pdf) Patient Educated with: INJECTIONTHERA PY.pdf (INJECTIONTHER APY.pdf) 04/21/2024 Plantar fasciitis, bilateral (ICD-10 - M72.2) Patient Educated with: HEEL CORD STRETCHES.pdf (HEEL CORD STRETCHES.pdf) Patient Educated with: RICE THERAPY.pdf (RICE THERAPY.pdf) 04/28/2024 Pain in left foot (ICD-10 - M79.672) 04/21/2024 Calcaneal spur, right foot (ICD-10 - M77.31) 04/21/2024 Other myositis of right foot (ICD-10 - M60.871) 04/21/2024 Bursitis of right foot (ICD-10 - M77.51) 04/21/2024 Pain in left foot (ICD-10 - M79.672) 04/21/2024 Calcaneal spur, left foot (ICD-10 - M77.32) 04/21/2024 Other myositis of left foot (ICD-10 - M60.872) 04/21/2024 Bursitis of left foot (ICD-10 - M77.52) Plan Of Treatment Pending Test Test Name Order Date X ray : Foot, left 3V 04/21/2024 X ray : Foot, right 3V 04/21/2024 Insurance Providers Payer Name Payer Address Payer Phone Subscriber Number Group Number Insured Name Patient Relationship to Insured Coverage Start Date Coverage End Date [employer] [address] [place] [address] [id number] Ericka Kimble Self - patient is the insured Medical (General) History Medical History History ICD Code Hyperlipidemia Allergic rhinitis asthma Nephrolithiasis Eczema rectal bleed Hypertension Plantar fasciitis colonoscopy Surgical History Surgery Date(Month/Year) Lithotripsy
--- OUTSIDE RECORDS SUMMARY | 2024-09-01 15:01 | XMS_ITS ---
Author Organization [facility] Address [address] [place] [address] Care Team Providers Care Program Development Specialist Name Role Phone Kymberly Hemphill MD Primary Care Provider Aurora Us Unavailable [phone] REASON FOR VISIT pt cx with service Encounters Encounter Location Date Provider Diagnosis [facility] [address] [place] [address] 08/18/2024 Aurora Davidson Plan Of Treatment No Information Progress Notes * Amparo KIMBLEB:1975 ([age] yo F)Acc No.[id number]:08/18/2024 Patient:?Ericka KIMBLE :1975???Age:49 Y???Sex:Female Address:[address] [place] [address] * true * Date:? Generated for Daya michele/Howie/eTransmitting on:?09/01/2024 03:01 PM EDT
--- OUTSIDE RECORDS SUMMARY | 2024-09-01 15:02 | XMS_ITS ---
Author Organization [facility] Address [address] [place] [address] Care Team Providers Care Supervisor Refining Name Role Phone Joby ESCOBEDO, Kymberly Primary Care Provider Aurora Us Unavailable [phone] Encounters Encounter Location Date Provider Diagnosis [address] [address] 08/18/2024 Aurora Davidson Plan Of Treatment No Information Progress Notes * Amparo KIMBLEB:1975 ([age] yo F)Acc No.[id number]:08/18/2024 Progress Note Patient:?Ericka KIMBLE Provider:?Aurora Davidson DPM :1975???Age:49 Y???Sex:Female D ate:08/18/2024 Address:[address] [place], [place] [address] Pcp:Kymberly Hemphill MD Subjective: * Chief Complaints: * ??? * Medical History:? Objective: * Vitals:? Assessment: Plan: * Treatment: * Images: * The named appointment provid er may or may not be the originator of this progress note, and it is not deemed complete until electronically signed by the appointment provider. Sign off status: Pending * Provider:?Aurora Davidson DPM Date:?08/2024 Generated for Daya michele/Howie/eTransmitting on:?09/01/2024 03:01 PM EDT
--- OUTSIDE RECORDS SUMMARY | 2024-09-01 15:02 | XMS_ITS ---
Author Organization [facility] Address [address] [place] [address] Care Team Providers Care Infrastructure Director Name Role Phone Joby ESCOBEDO, Kymberly Primary Care Provider Aurora Us Unavailable [phone] Encounters Encounter Location Date Provider Diagnosis [address] [address] 07/10/2024 Aurora Davidson Plan Of Treatment No Information Progress Notes * Amparo KIMBLEB:1975 ([age] yo F)Acc No.[id number]:07/10/2024 Progress Notes Patient:?Ericka KIMBLE Provider:?Aurora Davidson DPM :1975???Age:49 Y???Sex:Female D ate:07/10/2024 Address:[address] [place], [place] [address] Pcp:Kymbrely Hemphill MD Subjective: * Chief Complaints: * ??? * Medical History:? Objective: * Vitals:? Assessment: Plan: * Treatment: * Images: * The named appointment provid er may or may not be the originator of this progress note, and it is not deemed complete until electronically signed by the appointment provider. Sign off status: Pending * Provider:?Aurora Davidson DPM Date:? Generated for Daya michele/Howie/eTransmitting on:?09/01/2024 03:01 PM EDT
== END 2024-09-01 14:20 | disposition home or self-care (01) ==
LOC: HO.HMCC 12:55
PROVIDERS: PCP Internal Medicine; Visit Provider Internal Medicine
DX: Z98.890 Other specified postprocedural states (principal); J45.909 Unspecified asthma, uncomplicated; J30.9 Allergic rhinitis, unspecified; M25.519 Pain in unspecified shoulder; I10 Essential (primary) hypertension; Z00.00 Encounter for general adult medical examination without abnormal findings; E78.5 Hyperlipidemia, unspecified

== ENCOUNTER → 2024-09-01 14:30 | Outpatient (BNV) | payer OTHER, SELFPAY | PROVIDERS: PCP Internal Medicine; Visit Provider Radiology Diagnostic Radiology | DX: M25.511 Pain in right shoulder (principal) | CPT/HCPCS: 73030 ==

== ENCOUNTER 2024-09-17 06:15 | Outpatient (REF) | payer OTHER, SELFPAY ==
--- OUTSIDE RECORDS SUMMARY | 2024-09-17 06:18 | XMS_ITS | Patient Health Record ---
Author [facility] [place] Address [address] [place] [address] Care Team Providers Care Hand Packer/Packager Name Role Phone Joby ESCOBEDO, Kymberyl Primary Care Provider Aurora Us Unavailable [phone] Allergies Allergen (clinical drug ingredient) Drug/Non Drug [...] W/U Status Risk Notes Problem Plantar fasciitis (652776674) Plantar fasciitis (M72.2) Active confirmed Resistant to previous conservative treatment Problem Plantar fascial fibromatosis (53699859) Plantar fasciitis, bilateral (M72.2) Active confirmed Vital Signs Height 5ft 4in in 04/28/2024 Weight 169 lbs 04/28/2024 BMI 29.01 kg/m2 04/28/2024 Encounters Encounter Location Date Provider Diagnosis [address] [place] [address] 04/21/2024 Aurora Davidson Pain in right foot M79.671 ; Plantar fasciitis, bilateral M72.2 ; Calcaneal spur, right foot M77.31 ; Other myositis of right foot M60.871 ; Bursitis of right foot M77.51 ; Pain in left foot M79.672 ; Calcaneal spur, left foot M77.32 ; Other myositis of left foot M60.872 and Bursitis of left foot M77.[address] [place] [address] 04/28/2024 Aurora Davidson Plantar fasciitis M72.2 and Pain in left foot M79.[address] [address] 03/17/2024 Aurora Davidson [address] [address] 04/21/2024 Aurora Davidson [address] [address] 07/08/2024 Aurora Davidson [address] [address] 08/18/2024 Aurora Davidson Assessments Encounter Date Diagnosis [...] Date Coverage End Date [employer] [address] [place] [address] [id number] Ericka Kimble Self - patient is the insured Medical (General) History Medical History History ICD Code Hyperlipidemia Allergic rhinitis asthma Nephrolithiasis Eczema rectal bleed Hypertension Plantar fasciitis colonoscopy Surgical History Surgery Date(Month/Year) Lithotripsy
--- OUTSIDE RECORDS SUMMARY | 2024-09-17 06:18 | XMS_ITS ---
Author Organization [facility] Address [address] [place] [address] Care Team Providers Care Turner Splitter Machine Operator Name Role Phone Joby ESCOBEDO, Kymberly Primary Care Provider Aurora Us Unavailable [phone] Encounters Encounter Location Date Provider Diagnosis [address] [address] 08/18/2024 Aurora Davidson Plan Of Treatment No Information Progress Notes * Amparo KIMBLEB:1975 ([age] yo F)Acc No.[id number]:08/18/2024 Progress Note Patient:?Ericka KIMBLE Provider:?Aurora Davidson DPM :1975???Age:49 Y???Sex:Female D ate:08/18/2024 Address:[address] [place], [place] [phone] Pcp:Kymberly Hemphill MD Subjective: * Chief Complaints: [...] Davidson DPM Date:?08/2024 Generated for Daya michele/Howie/eTransmitting on:?09/17/2024 06:18 AM EDT
--- OUTSIDE RECORDS SUMMARY | 2024-09-17 06:18 | XMS_ITS ---
Author Organization [facility] Address [address] [place] [address] Care Team Providers Care Pot Fluxer Name Role Phone Joby ESCOBEDO, Kymberly Primary Care Provider Aurora Us Unavailable [phone] Encounters Encounter Location Date Provider Diagnosis [address] [address] 07/10/2024 Aurora Davidson Plan Of Treatment No Information Progress Notes * Amparo KIMBLEB:1975 ([age] yo F)Acc No.[id number]:07/10/2024 Progress Notes Patient:?Ericka KIMBLE Provider:?Aurora Davidson DPM :1975???Age:49 Y???Sex:Female D ate:07/10/2024 Address:[address] [place], [place] [id number] Pcp:Kymberly Hemphill MD Subjective: * Chief Complaints: [...] Davidson DPM Date:? Generated for Daya michele/Howie/eTransmitting on:?09/17/2024 06:17 AM EDT
[2024-09-17 10:18] LABS: MANUAL DIFF FLAG NO
[2024-09-17 10:22] LABS: Basophils Percent Auto 0.5 % (0-2); Eosinophils Absolute Auto 0.1 X10*3/uL (0.0-0.4); Eosinophils Percent Auto 1.7 % (0-4); Hematocrit 41.2 % (37.0-47.0); Hemoglobin 13.6 g/dl (12.0-16.0); Imm Gran Abs Auto 0.05 X10*3/uL (0.00-0.03); Imm Gran Pct Auto 0.8 % (0.0-0.4); Lymphocytes Absolute Auto 2.6 X10*3/uL (1.2-4.9); Lymphocytes Percent Auto 39.3 % (20-40); Mean Corpuscular Hemoglobin 29.2 pg (27.0-33.0); Mean Corpuscular Volume 88.6 fL (80.0-98.0); Mean Platelet Volume 9.4 fL (9.4-12.3); Monocytes Absolute Auto 1.2 X10*3/uL (0.1-1.2); Monocytes Percent Auto 17.6 % (2-11); Neutrophils Absolute Auto 2.6 x10*3/uL (2.0-8.3); Neutrophils Percent Auto 40.1 % (45-73); Platelet Count 375 X10*3/uL (160-400); Red Blood Count 4.65 X10*6/uL (4.20-5.50); White Blood Count 6.5 X10*3/uL (4.8-10.8)
[2024-09-17 10:28] LABS: Appearance Urine Hazy; Color Urine Yellow; Glucose Urine UA Negative (Negative); Leukocyte Esterase Urine Negative (Negative); Nitrite Urine Negative (Negative); Specific Gravity - Urine 1.015 (1.005-1.025); Urine Blood Negative (Negative); Urine Ketones Negative (Negative); Urine Protein Trace mg/dL (Neg-Trace)
[2024-09-17 10:31] LABS: Bacteria Urine 2+ (None Seen); Hyaline Casts Urine 0-2 /LPF (0-2); WBC Urine 0-5 /HPF (0-5)
[2024-09-17 11:43] LABS: Alanine Aminotransferase 50 U/L (0-31); Alkaline Phosphatase 75 U/L (39-117); Anion Gap 12 (12-20); Aspartate Amino Transferase 31 U/L (5-31); Blood Urea Nitrogen 13 mg/dL (9-16); Calcium 9.2 mg/dL (8.4-10.2); Carbon Dioxide 26 mmol/L (22-29); Chloride 105 mmol/L (96-108); Cholesterol 194 mg/dL (<200); Estimated Glomerular Filt Rate > 60; Glucose Fasting 89 mg/dL (60-99); HDL Cholesterol 54 mg/dL (>40); LDL Cholesterol Calculated 112 mg/dL (<100); Sodium 139 mmol/L (135-145); Total Protein 6.7 g/dL (6.5-8.0); Triglycerides 141 mg/dL (<150)
[2024-09-17 11:44] LABS: TSH reflex Free T4 3.57 uIU/mL (0.32-4.0)
== END 2024-09-17 06:16 | disposition home or self-care (01) ==
LOC: HO.HMGCLDS 06:15
PROVIDERS: PCP Internal Medicine; Visit Provider Internal Medicine
DX: Z00.00 Encounter for general adult medical examination without abnormal findings (principal); E78.5 Hyperlipidemia, unspecified; I10 Essential (primary) hypertension
CPT/HCPCS: 36415; 80053; 80061; 81001; 82306; 84443; 85025

== ENCOUNTER 2024-10-02 12:50 | Outpatient (AMB) | payer OTHER, SELFPAY ==
[2024-10-02 12:52] VITALS: BP 128/80; PULSE 89; RESP 20; TEMP 37.1; O2SAT 98; BMI 33.3
--- NOTE | 2024-10-02 12:52 | MHC.PC.OV ---
Vital Signs 10/02/24 12:52 Height 5 ft 1 in Weight 176 lb BMI 33.3 BP 128/80 Blood Pressure Location Lt brachial Position Sitting Respiration 20 Pulse 89 Pulse Source Pulse Oximeter Temp 98.8 F Temp Source Oral Pulse Oximetry (%) 98 Oxygen Delivery Method Room Air Intake Visit Reasons: 1 month f/up Allergies codeine Allergy (Intermediate, Verified 09/01/24 13:15) itching and rash Medication List - Last Reconciled 10/02/24 by Kymberly Hemphill MD albuterol sulfate 90 mcg/actuation (ProAir HFA) 2 puffs inhalation Q6H PRN azelastine 1 spray intranasal BID fluticasone furoate-vilanterol 100-25 mcg/dose (Breo Ellipta) 1 inh inhalation DAILY fluticasone propionate 50 mcg/actuation 1 spray intranasal DAILY mometasone 0.1% 1 appl topical DAILY montelukast 10 mg PO DAILY olmesartan 40 mg PO DAILY triamcinolone acetonide 0.1% 1 appl topical DAILY Tobacco use date assessed: 10/02/24 Dental Screening Dental Screen Date: 09/01/24 HPI 1 month f/up HPI Details Patient presents for the follow-up of hypertension and chronic asthma stable on current medications. She complains of persistent seasonal allergic rhinitis worse in the spring and is planning to schedule an appointment with medical imaging specialist for immunotherapy. [facility] Medical History Annual physical exam Rectal bleed Normal Pap smear Hyperlipemia Allergic rhinitis Asthma Nephrolithiasis Eczema Surgical History Hx of colonoscopy History of lithotripsy Family History Father No problems noted. Mother HTN (hypertension) Social History Housing: House Patient Tobacco Use Status: Never used Tobacco e-Cigarette/Vaping Use: Never Used Second Hand Smoke Exposure: No service: No Current occupational status: employed Cognitive needs: No Hearing needs: No Vision needs: No Questionnaire PHQ-9 Over the last 2 weeks, how often have you been bothered by any of the following problems? 1. Little interest or pleasure in doing things: not at all 2. Feeling down, depressed, or hopeless: not at all 3. Trouble falling or staying asleep, or sleeping too much: not at all 4. Feeling tired or having little energy: not at all 5. Poor appetite or overeating: not at all 6. Feeling bad about yourself - or that you are a failure or have let yourself or your family down: not at all 7. Trouble concentrating on things, such as reading the newspaper or watching television: not at all 8. Moving or speaking so slowly that other people could have noticed. Or the opposite - being so fidgety or restless that you have been moving around a lot more than usual: not at all 9. Thoughts that you would be better off or of hurting yourself in some way: not at all Total score: 0 Depression Screening Interpretation: Negative Depression Screening Done: Yes 81373 - PHQ-9 Billing: Yes Source: Developed by Drs. Madhu Zhu, Mini Bee, Angel Zuluaga and colleagues, with an educational chela from [employer]. Thrive Questionnaire Date Thrive assessed: 10/02/24 I am a: Patient MESERET-7 AMB Questionnaire MESERET-7 Date MESERET - 7 assessed: 09/01/24 Source: Developed by Drs. Madhu Zhu, Mini Bee, Angel Zuluaga and colleagues, with an educational chela from [employer]. Review of Systems Const All systems reviewed & are unremarkable except as noted in HPI and below Eyes Reports no additional complaints Card Reports no additional complaints Resp Reports no additional complaints GI Reports no additional complaints Reports no additional complaints Physical exam (Primary Care) Vital Signs: Last Vital Signs Temp 98.8 F 10/02/24 12:52 Pulse 89 10/02/24 12:52 Resp 20 10/02/24 12:52 BP 128/80 10/02/24 12:52 Pulse Ox 98 10/02/24 12:52 Oxygen Delivery Method Room Air 10/02/24 12:52 BMI result Body Mass Index 33.3 Tobacco/Smoking Status: Tobacco use Status Tobacco use date assessed 10/02/24 10/02/24 13:02 Patient Tobacco Use Status Never used Tobacco 10/02/24 13:02 e-Cigarette/Vaping Use Never Used 10/02/24 12:56 PHQ-9: PHQ-9 Score PHQ-9: Total score 0 10/02/24 12:56 Depression Screening Interpretation: Negative Thrive Assessment: Date of Thrive Assessment Date Thrive assessed 10/02/24 10/02/24 12:56 Const General: no acute distress HENMT Head: Yes normal to inspection Face and sinus: Yes normal facial exam Mouth: Normal oral and palatal mucosa present Eyes General: appearance normal, both eyes and all related structures Resp Effort & Inspection: normal respiratory effort Auscultation: clear to auscultation bilaterally Cardio Rhythm: regular rhythm Heart sounds: S1 normal heart sound present and S2 normal heart sound present GI Inspection: Yes normal to inspection Coding Level of Care Code Est Pt Level 4 (19232) Diagnoses Hyperlipemia E78.5 HTN (hypertension) I10 Asthma J45.909 Allergic rhinitis J30.9 Additional Codes PHQ-9 - 56946 - PHQ-9 Billing: Yes ([id number]) Assessment & Plan Assessment & Plan (1) Hyperlipemia: Code(s): E78.5 - Hyperlipidemia, unspecified Category: Medical Plan: Continue low-cholesterol diet (2) HTN (hypertension): Code(s): I10 - Essential (primary) hypertension Category: Medical Plan: Continue olmesartan (3) Asthma: Code(s): J45.909 - Unspecified asthma, uncomplicated Category: Medical Plan: Continue Breo (4) Allergic rhinitis: Code(s): J30.9 - Allergic rhinitis, unspecified Category: Medical Plan: Continue montelukast antihistamine and patient will schedule an appointment with the medical imaging specialist Orders: Orders Complete Blood Count Auto Diff 6 Months E78.5 - Hyperlipidemia, unspecified, I10 - Essential (primary) hypertension Lipid Panel 6 Months E78.5 - Hyperlipidemia, unspecified, I10 - Essential (primary) hypertension Comprehensive [place]. Panel Fast 6 Months E78.5 - Hyperlipidemia, unspecified, I10 - Essential (primary) hypertension
--- OUTSIDE RECORDS SUMMARY | 2024-10-02 15:37 | XMS_ITS ---
Author Organization [facility] Address [address] [place] [address] Care Team Providers Care Head Bucker Name Role Phone Kymberly Hemphill MD Primary Care Provider Aurora Us Unavailable [phone] REASON FOR VISIT pt cx with service Encounters Encounter Location Date Provider Diagnosis [facility] [address] [place] [address] 08/18/2024 Aurora Davidson Plan Of Treatment No Information Progress Notes * Amparo KIMBLEB:1975 ([age] yo F)Acc No.[id number]:08/18/2024 Patient:?Ericka KIMBLE :1975???Age:49 Y???Sex:Female Address:[address] [place] [address] * true * Date:? Generated for Daya michele/Howie/eTransmitting on:?10/02/2024 03:36 PM EDT
--- OUTSIDE RECORDS SUMMARY | 2024-10-02 15:37 | XMS_ITS ---
Author Organization [facility] Address [address] [place] [address] Care Team Providers Care Feed Crusher Name Role Phone Joby ESCOBEDO, Kymberly Primary Care Provider Aurora Us Unavailable [phone] Encounters Encounter Location Date Provider Diagnosis [address] [address] 07/10/2024 Aurora Davidson Plan Of Treatment No Information Progress Notes * Amparo KIMBLEB:1975 ([age] yo F)Acc No.[id number]:07/10/2024 Progress Notes Patient:?Ericka KIMBLE Provider:?Aurora Davidson DPM :1975???Age:49 Y???Sex:Female D ate:07/10/2024 Address:[address] [place], [place] [address] Pcp:Kymberly Hemphill MD Subjective: * Chief Complaints: [...] Davidson DPM Date:? Generated for Daya michele/Howie/eTransmitting on:?10/02/2024 03:37 PM EDT
--- OUTSIDE RECORDS SUMMARY | 2024-10-02 15:37 | XMS_ITS ---
Author Organization [facility] Address [address] [place] [address] Care Team Providers Care Leasing Consultant Name Role Phone Joby ESCOBEDO, Kymberly Primary Care Provider Aurora Us Unavailable [phone] Encounters Encounter Location Date Provider Diagnosis [address] [address] 08/18/2024 Aurora Davidson Plan Of Treatment No Information Progress Notes * Amparo KIMBLEB:1975 ([age] yo F)Acc No.[id number]:08/18/2024 Progress Note Patient:?Ericka KIMBLE Provider:?Aurora Davidson DPM :1975???Age:49 Y???Sex:Female D ate:08/18/2024 Address:[address] [place], [place] [address] Pcp:Kymberly Hemphill MD Subjective: * Chief Complaints: [...] Davidson DPM Date:?08/2024 Generated for Daya michele/Howie/eTransmitting on:?10/02/2024 03:37 PM EDT
--- OUTSIDE RECORDS SUMMARY | 2024-10-02 15:37 | XMS_ITS | Patient Health Record ---
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) Plantar fasciitis, bilateral (M72.2) Active confirmed Vital Signs Height 5ft 4in in 04/28/2024 Weight 169 lbs 04/28/2024 BMI 29.01 kg/m2 04/28/2024 Encounters Encounter Location Date Provider Diagnosis [address] [place] [address] 04/21/2024 Aurora Davidson Pain in right foot M79.671 ; Plantar fasciitis, bilateral M72.2 ; Calcaneal spur, right foot M77.31 ; Other myositis of right foot M60.871 ; Bursitis of right foot M77.51 ; Pain in left foot M79.672 ; Calcaneal spur, left foot M77.32 ; Other myositis of left foot M60.872 and Bursitis of left foot M77.[address] [place] [address] 04/28/2024 Aurora Davidson Plantar fasciitis M72.2 and Pain in left foot M79.[address] [address] 03/17/2024 Aurora Davidson [address] [address] 04/21/2024 Aurora Davidson [address] [address] 07/08/2024 Aurora Davidson [address] [address] 08/18/2024 Aurora Davidson Assessments Encounter Date Diagnosis [...] Date Coverage End Date [employer] [address] [place] [phone] [id number] Ericka Kimble Self - patient is the insured Medical (General) History Medical History History ICD Code Hyperlipidemia Allergic rhinitis asthma Nephrolithiasis Eczema rectal bleed Hypertension Plantar fasciitis colonoscopy Surgical History Surgery Date(Month/Year) Lithotripsy
== END 2024-10-02 13:12 | disposition home or self-care (01) ==
LOC: HO.HMCC 12:51
PROVIDERS: PCP Internal Medicine; Visit Provider Internal Medicine
DX: E78.5 Hyperlipidemia, unspecified (principal); I10 Essential (primary) hypertension; J45.909 Unspecified asthma, uncomplicated; J30.9 Allergic rhinitis, unspecified

== ENCOUNTER → 2024-10-02 12:50 | Outpatient (BNVA) | payer OTHER, SELFPAY | PROVIDERS: PCP Internal Medicine; Visit Provider Internal Medicine | DX: E78.5 Hyperlipidemia, unspecified (principal); I10 Essential (primary) hypertension; J45.909 Unspecified asthma, uncomplicated; Z79.899 Other long term (current) drug therapy | CPT/HCPCS: 96127 ==

== ENCOUNTER 2025-03-23 14:39 | Outpatient (REF) | payer OTHER, SELFPAY ==
--- OUTSIDE RECORDS SUMMARY | 2024-07-10 10:30 | XMS_ITS ---
Author Organization [facility] Address [address] [place] [address] Care Team Providers Care Land Leasing Examiner Name Role Phone Joby ESCOBEDO, Kymberly Primary Care Provider Aurora Us Unavailable [phone] Encounters Encounter Location Date Provider Diagnosis [address] [address] 07/10/2024 Aurora Davidson Plan Of Treatment No Information Progress Notes * Amparo KIMBLEB:1975 ([age] yo F)Acc No.[id number]:07/10/2024 Progress Notes Patient: Fredrick POONMEGHNA Ericka Provider: Suresh Davidson DPM :1975 A ge:49 Y S ex:Female Date:07/10/2024 Address:[address] [place] [address] Pcp:Kymberly Hemphill MD Subjective: * Chief Complaints: * * Medical History: Objective: * Vitals: Assessment: Plan: * Treatment: * Images: * The named appointment provid er may or may not be the originator of this progress note, and it is not deemed complete until electronically signed by the appointment provider. Sign off status: Pending * Provider: Suresh Davidson DPM Date: 0 07/10/2024 Generated for Daya michele/Howie/eTransmitting on: 05:06 PM EDT
--- OUTSIDE RECORDS SUMMARY | 2024-08-18 10:30 | XMS_ITS ---
Author Organization [facility] Address [address] [place] [address] Care Team Providers Care Oral Hygienist Name Role Phone Joby ESCOBEDO, Kymberly Primary Care Provider Aurora Us Unavailable [phone] Encounters Encounter Location Date Provider Diagnosis [address] [address] 08/18/2024 Aurora Davidson Plan Of Treatment No Information Progress Notes * Amparo KIMBLEB:1975 ([age] yo F)Acc No.[id number]:08/18/2024 Progress Note Patient: Fredrick POONMEGHNA Ericka Provider: Suresh Davidson DPM :1975 A ge:49 Y S ex:Female Date:08/18/2024 Address:[address] [place], [place] [address] Pcp:Kymberly Hemphill MD Subjective: * Chief Complaints: * * Medical History: Objective: * Vitals: Assessment: Plan: * Treatment: * Images: * The named appointment provid er may or may not be the originator of this progress note, and it is not deemed complete until electronically signed by the appointment provider. Sign off status: Pending * Provider: Suresh Davidson DPM Date: 0 08/18/2024 Generated for Daya michele/Howie/eTransmitting on: 1 05:06 PM EDT
--- NOTE | ~2025-03-23 | XR_ITS ---
EXAMINATION: XR ANKLE, left CLINICAL INFORMATION: S99.912A - Unspecified injury of left ankle, initial encounter COMPARISON: None available. TECHNIQUE: AP, lateral, and mortise views lower extremity joint, ankle. FINDINGS: Ankle mortise is congruent. There is no widening of the syndesmosis. Talar dome is intact. There are calcaneal enthesophyte(s), small the Achilles insertion and moderate at the plantar fascia. XR/XR ankle LT min 3V IMPRESSION: Unremarkable ankle x-ray aside from nonspecific calcaneal spurs. Electronically signed by: Sunny Su MD 03/23/2025 02:55 PM EDT
--- OUTSIDE RECORDS SUMMARY | 2025-03-23 17:06 | XMS_ITS | Patient Health Record ---
Author [facility] [place] Address [address] [place] [address] Care Team Providers Care Hook Puller Name Role Phone Joby ESCOBEDO, Kymberly Primary Care Provider Aurora Us Unavailable [phone] Allergies Allergen (clinical drug ingredient) Drug/Non Drug [...] W/U Status Risk Notes Problem Plantar fasciitis (447908345) Plantar fasciitis (M72.2) Active confirmed Resistant to previous conservative treatment Problem Plantar fascial fibromatosis (29076130) Plantar fasciitis, bilateral (M72.2) Active confirmed Vital Signs Height 5ft 4in in 04/28/2024 Weight 169 lbs 04/28/2024 BMI 29.01 kg/m2 04/28/2024 Encounters Encounter Location Date Provider Diagnosis [address] [place] [address] 04/21/2024 Aurora Davidson Pain in right foot M79.671 ; Plantar fasciitis, bilateral M72.2 ; Calcaneal spur, right foot M77.31 ; Other myositis of right foot M60.871 ; Bursitis of right foot M77.51 ; Pain in left foot M79.672 ; Calcaneal spur, left foot M77.32 ; Other myositis of left foot M60.872 and Bursitis of left foot M77.[address] [address] 04/28/2024 Aurora Davidson Plantar fasciitis M72.2 and Pain in left foot M79.[address] [address] 04/21/2024 Aurora Davidson [address] [address] 07/08/2024 Aurora Davidson [address] [address] 08/18/2024 Aurora Davidson Assessments Encounter Date Diagnosis (ICD Code) Assessment Notes Treatment Notes Treatment Clinical Notes Section Notes 04/28/2024 Plantar fasciitis (ICD-10 - M72.2) Resistant to previous conservative treatment Patient Educated with: RICE THERAPY.pdf (RICE THERAPY.pdf) Patient Educated with: INJECTIONTHERA PY.pdf (INJECTIONTHER APY.pdf) 04/21/2024 Pain in right foot (ICD-10 - M79.671) 04/28/2024 Pain in left foot (ICD-10 - M79.672) 04/21/2024 Plantar fasciitis, bilateral (ICD-10 - M72.2) Patient Educated with: HEEL CORD STRETCHES.pdf (HEEL CORD STRETCHES.pdf) Patient Educated with: RICE THERAPY.pdf (RICE THERAPY.pdf) 04/21/2024 Calcaneal spur, right foot (ICD-10 - [...] Date Coverage End Date [employer] [address] [place] [phone] [id number] Ericka Kimble Self - patient is the insured Medical (General) History Medical History History ICD Code Hyperlipidemia Allergic rhinitis asthma Nephrolithiasis Eczema rectal bleed Hypertension Plantar fasciitis colonoscopy Surgical History Surgery Date(Month/Year) Lithotripsy
== END 2025-03-23 14:40 | disposition home or self-care (01) ==
LOC: HO.HMGCX 14:39
PROVIDERS: PCP Internal Medicine; Visit Provider Internal Medicine
DX: S99.912A Unspecified injury of left ankle, initial encounter (principal)
CPT/HCPCS: 73610

== ENCOUNTER → 2025-03-23 14:43 | Outpatient (BNV) | payer OTHER, SELFPAY | PROVIDERS: PCP Internal Medicine; Visit Provider Radiology Diagnostic Radiology | DX: S99.912A Unspecified injury of left ankle, initial encounter (principal) | CPT/HCPCS: 73610 ==

== ENCOUNTER 2025-04-15 14:12 | Outpatient (AMB) | payer OTHER, SELFPAY ==
[2025-04-15 14:20] VITALS: BP 120/78; PULSE 79; TEMP 36.8; O2SAT 95; BMI 33.1
--- NOTE | 2025-04-15 14:20 | MHC.PC.OV ---
Vital Signs 04/15/25 14:20 Height 5 ft 1 in Weight 175 lb BMI 33.1 BP 120/78 Blood Pressure Location Lt brachial Position Sitting Pulse 79 Pulse Source Pulse Oximeter Temp 98.2 F Temp Source Oral Pulse Oximetry (%) 95 Oxygen Delivery Method Room Air Intake Visit Reasons: Follow up Intake Note: Pt is here today for a follow up visit on L foot pain and ankle pain. Allergies codeine Allergy (Intermediate, Verified 04/15/25 14:28) itching and rash Medication List - Last Reconciled 04/15/25 by Kymberly Hemphill MD albuterol sulfate 90 mcg/actuation (ProAir HFA) 2 puffs inhalation Q6H PRN azelastine 1 spray intranasal BID fluticasone furoate-vilanterol 100-25 mcg/dose (Breo Ellipta) 1 inh inhalation DAILY fluticasone propionate 50 mcg/actuation 1 spray intranasal DAILY mometasone 0.1% 1 appl topical DAILY montelukast 10 mg PO DAILY olmesartan 40 mg PO DAILY triamcinolone acetonide 0.1% 1 appl topical DAILY Tobacco use date assessed: 04/15/25 Dental Screening Dental Screen Date: 09/01/24 HPI Follow up HPI Details Pt presents for a f/u of L ankle sprain 3 weeks ago. Patient denies any joint swelling. The pain improved significantly and patient has been walking without difficulty. Hypertension chronic asthma stable on current medications [facility] Medical History Annual physical exam Rectal bleed Normal Pap smear Hyperlipemia Allergic rhinitis Asthma Nephrolithiasis Eczema Surgical History Hx of colonoscopy History of lithotripsy Family History Father No problems noted. Mother HTN (hypertension) Social History Housing: House Patient Tobacco Use Status: Never used Tobacco e-Cigarette/Vaping Use: Never Used Second Hand Smoke Exposure: No service: No Current occupational status: employed Cognitive needs: No Hearing needs: No Vision needs: No Questionnaire Thrive Questionnaire Date Thrive assessed: 10/02/24 What is your living situation today?: I have a steady place to live Within the past 12 months, did the food you bought not last and you didn't have the money to get more?: I choose not to answer this question Within the past 12 months, did you worry whether your food would run out before you got money to buy more?: I choose not to answer this question Do you have trouble paying for medicines?: I choose not to answer this question Do you have trouble getting transportation to medical appointments?: I choose not to answer this question Do you have trouble paying your heating and electricity bill?: I choose not to answer this question Do you have trouble taking care of your child, family member or friend?: I choose not to answer this question Do you have trouble with day-to-day activities such as bathing, preparing meals, shopping, managing finances, etc.?: I choose not to answer this question Are you currently unemployed and looking for a job?: I choose not to answer this question Are you interested in more education?: I choose not to answer this question Please select the resources that you would like help with: None Currently or been in a relationship where the following occur: I choose not to answer THRIVE Score: 0 AUDIT C Alcohol Use Questionnaire (AUDIT-C) 1. How often do you have a drink containing alcohol?: Never Total Score: 0 MESERET-7 AMB Questionnaire MESERET-7 Date MESERET - 7 assessed: 09/01/24 Feeling nervous, anxious, or on edge: 0 = Not at all Not being able to stop or control worryin = Not at all Worrying too much about different things: 0 = Not at all Trouble relaxin = Not at all Being so restless that it is hard to sit still: 0 = Not at all Becoming easily annoyed or irritable: 0 = Not at all Feeling afraid as if something awful might happen: 0 = Not at all Total MESERET-7 score (0-4 normal; 5-9 mild; 10-14 moderate; 15-21 severe): 0 Source: Developed by Drs. Madhu Zhu, Mini Bee, Angel Zuluaga and colleagues, with an educational chela from [employer] Review of Systems Const All systems reviewed & are unremarkable except as noted in HPI and below Card Reports no additional complaints Resp Reports no additional complaints GI Reports no additional complaints Reports no additional complaints Physical exam (Primary Care) Vital Signs: Last Vital Signs Temp 98.2 F 04/15/25 14:20 Pulse 79 04/15/25 14:20 BP 120/78 04/15/25 14:20 Pulse Ox 95 04/15/25 14:20 Oxygen Delivery Method Room Air 04/15/25 14:20 BMI result Body Mass Index 33.1 Tobacco/Smoking Status: Tobacco use Status Tobacco use date assessed 04/15/25 04/15/25 14:29 Patient Tobacco Use Status Never used Tobacco 04/15/25 14:21 e-Cigarette/Vaping Use Never Used 04/15/25 14:21 Thrive Assessment: Date of Thrive Assessment Date Thrive assessed 10/02/24 04/15/25 14:21 Currently or been in a relationship where the following occur: I choose not to answer Const General: no acute distress Resp Effort & Inspection: normal respiratory effort Auscultation: clear to auscultation bilaterally Cardio Rhythm: regular rhythm Heart sounds: S1 normal heart sound present and S2 normal heart sound present Extrem Other: There is a full range of motion in the left ankle no soft tissue swelling erythema or warmth General: Yes no clubbing, cyanosis or edema Coding Level of Care Code Est Pt Level 4 (17353) Diagnoses Asthma J45.909 HTN (hypertension) I10 Left ankle strain S96.912A Assessment & Plan Assessment & Plan (1) Asthma: Code(s): J45.909 - Unspecified asthma, uncomplicated Category: Medical Plan: Continue Breo (2) HTN (hypertension): Code(s): I10 - Essential (primary) hypertension Category: Medical Plan: Continue olmesartan (3) Left ankle strain: Code(s): S96.912A - Strain of unspecified muscle and tendon at ankle and foot level, left foot, initial encounter Category: Medical Plan: Continue supportive care Orders: Orders Comprehensive [place]. Panel Fast 5 Months E78.5 - Hyperlipidemia, unspecified, I10 - Essential (primary) hypertension, J45.909 - Unspecified asthma, uncomplicated UA w Microscopic 5 Months E78.5 - Hyperlipidemia, unspecified, I10 - Essential (primary) hypertension, J45.909 - Unspecified asthma, uncomplicated Complete Blood Count Auto Diff 5 Months E78.5 - Hyperlipidemia, unspecified, I10 - Essential (primary) hypertension, J45.909 - Unspecified asthma, uncomplicated Lipid Panel 5 Months E78.5 - Hyperlipidemia, unspecified, I10 - Essential (primary) hypertension, J45.909 - Unspecified asthma, uncomplicated TSH reflex Free T4 5 Months E78.5 - Hyperlipidemia, unspecified, I10 - Essential (primary) hypertension, J45.909 - Unspecified asthma, uncomplicated Vitamin D 25-OH Total 5 Months E78.5 - Hyperlipidemia, unspecified, I10 - Essential (primary) hypertension, J45.909 - Unspecified asthma, uncomplicated
== END 2025-04-15 14:51 | disposition home or self-care (01) ==
LOC: HO.HMCC 14:13
PROVIDERS: PCP Internal Medicine; Visit Provider Internal Medicine
DX: J45.909 Unspecified asthma, uncomplicated (principal); I10 Essential (primary) hypertension; S96.912A Strain of unspecified muscle and tendon at ankle and foot level, left foot, initial encounter